=== PATIENT | female | born 1930 | race Hispanic/Latino ===

== ENCOUNTER → 2017-11-17 | Outpatient (CLI) | payer MEDICARE ==
[~2017-11-17] MED LIST: AMLO5TAB2 PO; ASPI-1005 PO; ATOR40TA71 PO; BICIT15L PO; DICY10CA13 PO; EPOE10004 IJ; FOLI100T PO; LORA10CA9 PO; METO100T14 PO; NIFE90TA45 PO; OMEG1CAP67 PO; PRED5TAB PO; SERT25TA5 PO; VITA0.4T20 PO; VITA200C75 PO
== END | disposition home or self-care (01) ==
LOC: RAH 11:38 → EDBD 11:38
PROVIDERS: ATTEND Physical Medicine & Rehabilitation
DX: M43.16 Spondylolisthesis, lumbar region (principal); M51.26 Other intervertebral disc displacement, lumbar region; M48.061 Spinal stenosis, lumbar region without neurogenic claudication; M48.56XA Collapsed vertebra, not elsewhere classified, lumbar region, initial encounter for fracture
CPT/HCPCS: 71046; 72131

== ENCOUNTER 2017-11-28 13:47 | Observation (INO) | payer MEDICARE ==
[~2017-11-28] VITALS: Ht 170.2 cm; Wt 66.0 kg
[2017-11-28 14:19] LABS: BASOPHILS % (AUTO) 0.4 % (0.0-5.0); EOSINOPHILS % (AUTO) 0.1 % (0.0-8.0); LYMPHOCYTES % (AUTO) 9.1 % (21.0-51.0); MEAN CORPUSCULAR HEMOGLOBIN 35.4 pg (27.0-33.0); MEAN CORPUSCULAR HGB CONC 32.8 g/dL (32.0-36.0); MEAN CORPUSCULAR VOLUME 107.8 fL (79-99); MONOCYTES % (AUTO) 3.2 % (3.0-13.0); NEUTROPHILS % (AUTO) 87.2 % (40.0-77.0); NUCLEATED RED BLOOD CELLS 0.1 % (0.0-0.19); PLATELET COUNT (AUTO) 132 K/uL (130-400); RED BLOOD CELL COUNT(AUTO) 1.76 MIL/uL (4.00-5.50); RED CELL DISTRIBUTION WIDTH 21.3 % (11.0-15.5); WHITE BLOOD COUNT (AUTO) 9.1 K/uL (4.8-10.8)
[2017-11-28 14:26] LABS: CREATININE 3.7 mg/dL (0.5-1.5); POTASSIUM 3.6 mmol/L (3.5-5.1)
[2017-11-28 14:31] LABS: ALBUMIN 2.8 g/dL (3.5-5.0); BILIRUBIN,TOTAL 0.5 mg/dL (0.2-1.0); TOTAL PROTEIN, SERUM 6.7 g/dL (6.0-8.3)
[2017-11-28 15:27] LABS: INR 1.04 (0.85-1.15); PARTIAL THROMBOPLASTIN TIME 27.5 SEC (26.3-35.5); PROTHROMBIN TIME 10.9 SEC (9.6-11.6)
[2017-11-28 16:09] LABS: RAPID GROUP A STREP NEGATIVE (NEGATIVE)
[2017-11-28] MEDS ORDERED: ONDANSETRON HCL 4 MG/2 ML VIAL IV PRN (16:15)
[2017-11-28] MEDS ORDERED: LACTULOSE 20 GM/30 ML UDCUP PO PRN (16:15)
[2017-11-28] MEDS ORDERED: ACETAMINOPHEN 325 MG TAB PO PRN (16:15)
[2017-11-28 17:45] VITALS: BP 191/56
[2017-11-28] MEDS ORDERED: PRED5TAB PO (18:52)
[2017-11-28] MEDS ORDERED: VITA200C75 PO (18:52)
[2017-11-28] MEDS ORDERED: FOLI100T PO (18:52)
[2017-11-28] MEDS ORDERED: DICY10CA13 PO (18:52)
[2017-11-28] MEDS ORDERED: EPOE10004 IJ (18:52)
[2017-11-28] MEDS ORDERED: VITA0.4T20 PO (18:52)
[2017-11-28] MEDS ORDERED: SERT25TA5 PO (18:52)
[2017-11-28] MEDS ORDERED: METO100T14 PO (18:52)
[2017-11-28] MEDS ORDERED: ASPI-1005 PO (18:52)
[2017-11-28] MEDS ORDERED: BICIT15L PO (18:52)
[2017-11-28] MEDS ORDERED: NIFE90TA45 PO (18:52)
[2017-11-28] MEDS ORDERED: AMLO5TAB2 PO (18:52)
[2017-11-28] MEDS ORDERED: LORA10CA9 PO (18:52)
[2017-11-28] MEDS ORDERED: ATOR40TA71 PO (18:52)
[2017-11-28] MEDS ORDERED: OMEG1CAP67 PO (18:52)
[2017-11-28 20:00] VITALS: BP 173/66
[2017-11-28] MEDS ORDERED: SODIUM CHLORIDE 0.9% 250 ML IV ONE ×2 (20:18→20:22)
[2017-11-28] MEDS ORDERED: NIFEDIPINE ER 30 MG TAB PO SCH (21:00)
[2017-11-28] MEDS ORDERED: ATORVASTATIN CALCIUM 40 MG TABLET PO SCH (21:00)
[2017-11-28] MEDS: CITRIC ACID/SODIUM CITRATE 30 ML UDCUP PO SCH (23:10)
[2017-11-29] VITALS: BP 179/75
[2017-11-29] MEDS ORDERED: HYDRALAZINE HCL 20 MG/ML VIAL IV PRN (02:00)
[2017-11-29] MEDS ORDERED: HYDRALAZINE HCL 20 MG/ML VIAL ONE (02:31)
[2017-11-29 02:34] VITALS: BP 187/80
[2017-11-29] MEDS ORDERED: PHARMACY COMMUNICATION MISC SCH (03:45)
[2017-11-29 04:00] VITALS: BP 166/70
[2017-11-29 05:36] LABS: RETICULOCYTE % (AUTO) 4.04 % (0.42-2.23)
[2017-11-29 05:37] LABS: BASOPHILS % (AUTO) 0.5 % (0.0-5.0); EOSINOPHILS % (AUTO) 0.9 % (0.0-8.0); HEMATOCRIT 25.1 % (36-48); MEAN CORPUSCULAR HEMOGLOBIN 33.6 pg (27.0-33.0); MEAN CORPUSCULAR HGB CONC 35.4 g/dL (32.0-36.0); MEAN CORPUSCULAR VOLUME 95.1 fL (79-99); MONOCYTES % (AUTO) 9.2 % (3.0-13.0); NEUTROPHILS % (AUTO) 70.4 % (40.0-77.0); NUCLEATED RED BLOOD CELLS 0.1 % (0.0-0.19); PLATELET COUNT (AUTO) 112 K/uL (130-400); RED BLOOD CELL COUNT(AUTO) 2.63 MIL/uL (4.00-5.50); RED CELL DISTRIBUTION WIDTH 22.8 % (11.0-15.5)
[2017-11-29 05:48] LABS: CREATININE 3.5 mg/dL (0.5-1.5); MAGNESIUM 1.5 mg/dL (1.80-2.40); POTASSIUM 3.9 mmol/L (3.5-5.1)
[2017-11-29 07:14] LABS: % IRON SATURATION 24.8 % (22-44)
[2017-11-29 07:30] VITALS: BP 141/71
[2017-11-29] MEDS: CITRIC ACID/SODIUM CITRATE 30 ML UDCUP PO SCH (08:53)
[2017-11-29] MEDS ORDERED: SERTRALINE HCL 50 MG TABLET PO SCH (09:00)
[2017-11-29] MEDS ORDERED: ASPIRIN 81MG TAB.CHEW PO SCH (09:00)
[2017-11-29] MEDS ORDERED: PREDNISONE 5 MG TABLET PO SCH (09:00)
[2017-11-29] MEDS ORDERED: METOPROLOL TARTRATE 50 MG TAB PO SCH (09:00)
[2017-11-29] MEDS ORDERED: AMLODIPINE BESYLATE 5 MG TAB PO SCH ×2 (09:00)
[2017-11-29] MEDS ORDERED: FISH OIL 1000 MG/CAP PO SCH (09:00)
[2017-11-29] MEDS ORDERED: PANTOPRAZOLE SODIUM 40 MG TABLET.DR PO SCH (09:00)
[2017-11-29 14:52] VITALS: BP 138/59
== END 2017-11-29 16:00 | disposition home or self-care (01) ==
LOC: EDH 13:47 → EDHIP 15:37 → 4BH 17:27
PROVIDERS: ADMIT Family Medicine; ATTEND Family Medicine
DX: D64.9 Anemia, unspecified (principal); I12.0 Hypertensive chronic kidney disease with stage 5 chronic kidney disease or end stage renal disease; N18.5 Chronic kidney disease, stage 5; E78.5 Hyperlipidemia, unspecified; Z90.5 Acquired absence of kidney; Z85.528 Personal history of other malignant neoplasm of kidney; Z88.8 Allergy status to other drugs, medicaments and biological substances; Z79.899 Other long term (current) drug therapy
CPT/HCPCS: 36415 ×2; 36430 ×2; 71045; 78580; 80048; 80053; 82607; 82728; 82746; 83605 ×2; 83735; 83880; 84484; 85025 ×2; 85610; 85730; 86850; 86900; 86901; 86922 ×2; 87804 ×2; 87880; 93005; 99291; A9540 ×2; G0378 ×24; J0360; J7030 ×2; J7512; P9016 ×2

== ENCOUNTER → 2017-11-28 | Outpatient (CLI) | payer MEDICARE | END | disposition home or self-care (01) | LOC: RAH 10:51 | PROVIDERS: ATTEND Physical Medicine & Rehabilitation | DX: M48.56XA Collapsed vertebra, not elsewhere classified, lumbar region, initial encounter for fracture (principal) | CPT/HCPCS: 72148 ==

== ENCOUNTER → 2018-08-18 | Outpatient (CLI) | payer MEDICARE ==
[~2018-08-18] MED LIST changes: -AMLO5TAB2 PO; +AMLO5TAB7 PO
== END | disposition home or self-care (01) ==
LOC: RAH 15:06
PROVIDERS: ATTEND Physical Medicine & Rehabilitation
DX: M48.061 Spinal stenosis, lumbar region without neurogenic claudication (principal); M51.37 Other intervertebral disc degeneration, lumbosacral region
CPT/HCPCS: 72148